=== PATIENT | female | born 1955 | race Two or more races ===

== ENCOUNTER 2018-01-22 11:04 | Emergency (ER) | payer OTHER ==
[~2018-01-22] VITALS: Ht 162.6 cm; Wt 64.4 kg
--- NOTE | 2018-01-22 11:20 | NUR ---
aaox3, bib family c/o R elbow pain s/p glf . -ko. no acute distress noted. [facility] wnl. awaiting md for eval.
[2018-01-22] MEDS ORDERED: IBUPROFEN 400 MG TABLET PO ONE (11:30)
[2018-01-22] MEDS ORDERED: IBUPROFEN 400 MG TABLET ONE (11:33)
[2018-01-22 12:12] VITALS: BP 119/74
== END 2018-01-22 12:12 | disposition home or self-care (01) ==
LOC: ER 11:06
DX: M25.521 Pain in right elbow (principal); M54.30 Sciatica, unspecified side; Z96.21 Cochlear implant status
CPT/HCPCS: 73080; 99284; A4606; Z7610

== ENCOUNTER 2021-12-04 19:59 | Emergency (ER) | payer MEDICARE, OTHER ==
[~2021-12-04] VITALS: Ht 170.2 cm; Wt 71.2 kg
[2021-12-04 21:40] VITALS: BP 154/89
--- NOTE | 2021-12-04 21:40 | NUR ---
BIBSON C/O L EAR PAIN X2 DAYS +SLIGHTLY BLEEDING. A/OX3. TOLREATING R/A WELL WITH NO SOB AT 99%. SAFETY MEASURES IN PLACE.
[2021-12-04] MEDS ORDERED: OFLO5DRO5 LEFT EAR (22:21)
--- NOTE | 2021-12-04 22:26 | NUR ---
Patient discharged to home in stable condition. Written and verbal after care instructions given. Patient verbalizes understanding of instruction. pt ambulatory with a steady gait
== END 2021-12-04 22:28 | disposition home or self-care (01) ==
LOC: ER 20:03
DX: H60.92 Unspecified otitis externa, left ear (principal); Z79.899 Other long term (current) drug therapy